=== PATIENT | male | born 1955 | race Caucasian/White ===

== ENCOUNTER 2017-01-07 15:40 | Emergency (ER) | payer MEDICARE, MEDICAID ==
[2017-01-07 16:44] VITALS: BP 122/73
--- NOTE | 2017-01-07 16:57 | UC ---
Skin Complaint HPI - HPI Summary HPI Summary: left knee abrasion x 1 day hit the left knee to the stairs , minor abrasion, no bleeding walking well , no knee pain - History of Current Complaint Chief Complaint: UCLowerExtremity Time Seen by Provider: 01/07/17 16:51 Stated Complaint: LEFT KNEE INJURY Hx Obtained From: Patient Onset/Duration: Sudden Onset, Lasting Days - 1, Still Present Timing: Constant Onset Severity: Mild Current Severity: Mild Location: Other - left knee Aggravating: Nothing Alleviating: Nothing Associated Signs & Symptoms: Positive: Negative - Allergy/Home Medications Allergies/Adverse Reactions: Allergies Allergy/AdvReac Type Severity Reaction Status Date / Time No Known Allergies Allergy Verified 01/07/17 16:44 Review of Systems Constitutional: Negative Skin: Negative Eyes: Negative ENT: Negative Respiratory: Negative Cardiovascular: Negative Gastrointestinal: Negative Genitourinary: Negative Motor: Negative Neurovascular: Negative Musculoskeletal: Negative Neurological: Negative Psychological: Negative All Other Systems Reviewed And Are Negative: Yes PMH/Surg Hx/FS Hx/Imm Hx - Additional Past Medical History Additional PMH: Hiatel hernia surgery partial bowel obstruction 2006 Epi Gastic Herniorrhaphy Fx left thumb galbladder - Surgical History Surgical History: None Surgery Procedure, Year, and Place: Hiatel hernia surgery. partial bowel obstruction 2005. Epi Gastic Herniorrhaphy. Fx left thumb. galbladder - Family History Known Family History: Positive: None, Unknown - hx of MR could not obtain fmily hx - Social History Alcohol Use: None Substance Use Type: None Smoking Status (MU): Never Smoked Tobacco Physical Exam Triage Information Reviewed: Yes Appearance: Well-Appearing, No Pain Distress, Well-Nourished Vital Signs: Initial Vital Signs Temp 98.3 F 01/07/17 16:36 Pulse 68 01/07/17 16:36 Resp 16 01/07/17 16:36 BP 122/73 01/07/17 16:36 Pulse Ox 97 01/07/17 16:36 Vital Signs Reviewed: Yes Eyes: Positive: Conjunctiva Clear ENT: Positive: Normal ENT inspection, Hearing grossly normal, Pharynx normal Neck: Positive: Supple Respiratory: Positive: Chest non-tender, Lungs clear, Normal breath sounds Cardiovascular: Positive: RRR, No Murmur, Pulses Normal Skin: Positive: Other - mild abrasion of the left knee, no bleeding Course/Dx - Diagnoses Provider Diagnoses: abrasion left knee Discharge - Discharge Plan Condition: Stable Disposition: HOME Patient Education Materials: Abrasion (ED) Referrals: Shawn Ruiz MD [Primary Care Provider] - If Needed
== END 2017-01-07 17:02 | disposition home or self-care (01) ==
LOC: UCCORT 15:40
DX: S80.212A Abrasion, left knee, initial encounter (principal); W22.8XXA Striking against or struck by other objects, initial encounter; Y93.9 Activity, unspecified; Y92.9 Unspecified place or not applicable
CPT/HCPCS: 99211; G0463

== ENCOUNTER 2017-02-14 16:10 | Emergency (ER) | payer MEDICARE, MEDICAID ==
[2017-02-14 16:26] VITALS: BP 130/83
--- NOTE | 2017-02-14 17:24 | UC ---
Skin Complaint HPI - HPI Summary HPI Summary: 61 yo male with neck rash that started today no pain or itch was out in sun - History of Current Complaint Chief Complaint: UCSkin Time Seen by Provider: 02/14/17 16:51 Stated Complaint: RASH NECK Hx Obtained From: Patient, Family/Diamond Cleaner Onset/Duration: Gradual Onset, Lasting Hours Timing: Constant Onset Severity: Mild Current Severity: Mild Pain Intensity: 0 Pain Scale Used: 0-10 Numeric Location: Other - from shirt collar up Character: Redness Aggravating: Nothing Alleviating: Nothing Associated Signs & Symptoms: Positive: Rash - Allergy/Home Medications Allergies/Adverse Reactions: Allergies Allergy/AdvReac Type Severity Reaction Status Date / Time No Known Allergies Allergy Verified 02/14/17 16:16 Home Medications: Home Medications [place] Carbonate TAB* 1 tab BID 02/14/17 [History Confirmed 02/14/17] Review of Systems Constitutional: Negative Skin: Rash Eyes: Negative ENT: Negative Respiratory: Negative Cardiovascular: Negative Gastrointestinal: Negative Genitourinary: Negative Motor: Negative Neurovascular: Negative Musculoskeletal: Negative Neurological: Negative Psychological: Negative All Other Systems Reviewed And Are Negative: Yes PMH/Surg Hx/FS Hx/Imm Hx Previously Healthy: Yes - mild MR Endocrine History: Hypothyroidism Psychological History: Other Other Psychological History: impulse controll disorder - Surgical History Surgical History: Yes Surgery Procedure, Year, and Place: Hiatel hernia surgery. partial bowel obstruction 2005. Epi Gastic Herniorrhaphy. Fx left thumb. galbladder - Family History Known Family History: Positive: None, Unknown - hx of MR could not obtain fmily hx - Social History Alcohol Use: None Substance Use Type: None Smoking Status (MU): Never Smoked Tobacco - Immunization History Most Recent Influenza Vaccination: 03/21/16 Most Recent Tetanus Shot: 04/14/09 Physical Exam Triage Information Reviewed: Yes Appearance: Well-Appearing, No Pain Distress, Well-Nourished Vital Signs: Initial Vital Signs Temp 99.2 F 02/14/17 16:16 Pulse 70 02/14/17 16:16 Resp 18 02/14/17 16:16 BP 130/83 02/14/17 16:16 Pulse Ox 99 02/14/17 16:16 Eye Exam: Normal Eyes: Positive: Conjunctiva Clear ENT: Positive: Hearing grossly normal. Negative: Nasal congestion, Nasal drainage, Trismus, Muffled/hoarse voice Neck: Positive: Supple, Nontender, No Lymphadenopathy Respiratory: Positive: Lungs clear, Normal breath sounds, No respiratory distress Cardiovascular: Positive: RRR, No Murmur Musculoskeletal: Positive: ROM Intact, No Edema Neurological: Positive: Alert Skin Exam: Other - see image Course/Dx - Diagnoses Provider Diagnoses: acute rash. suspect phototoxic drug reaction Discharge - Discharge Plan Condition: Stable Disposition: HOME Patient Education Materials: Acute Rash (ED), Photosensitivity (ED) Referrals: Shawn Ruiz MD [Primary Care Provider] - If Needed (recheck early next week if not better ) Additional Instructions: avoid sun exposure recheck for pain or itch Images Head: 1 - ertyema L>right neck 2 - erthema in area of thinning hair 3 - erthyema L>R face
== END 2017-02-14 17:33 | disposition home or self-care (01) ==
LOC: UCCORT 16:10
DX: R21 Rash and other nonspecific skin eruption (principal); E03.9 Hypothyroidism, unspecified; F63.9 Impulse disorder, unspecified; F79 Unspecified intellectual disabilities
CPT/HCPCS: 99211; G0463

== ENCOUNTER 2017-08-24 14:16 | Emergency (ER) | payer MEDICARE, MEDICAID ==
[2017-08-24 15:09] VITALS: BP 106/73
--- NOTE | 2017-08-24 15:52 | UC ---
Abdominal Pain Male HPI - HPI Summary HPI Summary: 62 yo male states he had abd pain today it lasted between 5 and 60 minutes he has been pain free since no fever no n/v/d no UTI symptoms good appetite - History of Current Complaint Chief Complaint: UCAbdominalPain Stated Complaint: ABDOMINAL PAIN Time Seen by Provider: 08/24/17 15:22 Hx Obtained From: Patient, Family/Chemist Onset/Duration: Gradual Onset, Lasting Minutes Timing: Constant Severity Initially: Moderate Severity Currently: None Pain Intensity: 0 Pain Scale Used: 0-10 Numeric Location: Diffuse Radiates: No Character: Unable to describe Aggravating Factor(s): Nothing Alleviating Factor(s): Spontaneous Resolution Associated Signs And Symptoms: Positive: Negative - Allergies/Home Medications Allergies/Adverse Reactions: Allergies Allergy/AdvReac Type Severity Reaction Status Date / Time No Known Allergies Allergy Verified 02/14/17 16:16 Home Medications: Home Medications Levothyroxine TAB* [Synthroid TAB*] 50 mcg PO DAILY 08/24/17 [History Confirmed 08/24/17] PMH/Surg Hx/FS Hx/Imm Hx Previously Healthy: Yes - MR/consipation - Surgical History Surgical History: Yes Surgery Procedure, Year, and Place: Hiatel hernia surgery. partial bowel obstruction 2005. Epi Gastic Herniorrhaphy. Fx left thumb. galbladder - Family History Known Family History: Positive: None, Unknown - hx of MR could not obtain fmily hx - Social History Alcohol Use: None Substance Use Type: None Smoking Status (MU): Never Smoked Tobacco - Immunization History Most Recent Influenza Vaccination: 03/21/16 Most Recent Tetanus Shot: 04/14/09 Review of Systems Constitutional: Negative Skin: Negative Eyes: Negative ENT: Negative Respiratory: Negative Cardiovascular: Negative Gastrointestinal: Abdominal Pain - resolved Genitourinary: Negative Motor: Negative Neurovascular: Negative Musculoskeletal: Negative Neurological: Negative Psychological: Negative Is Patient Immunocompromised?: No All Other Systems Reviewed And Are Negative: Yes Physical Exam Triage Information Reviewed: Yes Appearance: Well-Appearing, No Pain Distress, Well-Nourished Vital Signs: Initial Vital Signs Temp 98.5 F 08/24/17 15:02 Pulse 65 08/24/17 15:02 Resp 18 08/24/17 15:02 BP 106/73 08/24/17 15:02 Pulse Ox 99 03/01/18 15:02 Vital Signs Reviewed: Yes Eyes: Positive: Conjunctiva Clear ENT: Positive: Hearing grossly normal. Negative: Nasal congestion, Nasal drainage, Trismus, Muffled voice, Hoarse voice Dental: Positive: Other: - absent teeth Neck: Positive: Supple, Nontender Respiratory: Positive: Lungs clear, Normal breath sounds, No respiratory distress, No accessory muscle use Cardiovascular: Positive: RRR, No Murmur Abdomen Description: Positive: Nontender, No Organomegaly, Soft. Negative: CVA Tenderness (R), CVA Tenderness (L) Bowel Sounds: Positive: Present Musculoskeletal: Positive: ROM Intact, No Edema Neurological: Positive: Alert Psychological Exam: Normal Skin Exam: Normal Abd Pain Male Course/Dx - Differential Dx/Clinical Impression Provider Diagnoses: abdomonal pain of uncertain cause, spontaneous resolution Discharge - Discharge Plan Condition: Stable Disposition: HOME Patient Education Materials: Acute Abdominal Pain (ED) Referrals: Shawn Ruiz MD [Primary Care Provider] - If Needed Additional Instructions: recheck if symptoms recur (here or with primary)
== END 2017-08-24 15:53 | disposition home or self-care (01) ==
LOC: UCCORT 14:16
DX: R10.9 Unspecified abdominal pain (principal)
CPT/HCPCS: 99212; G0463

== ENCOUNTER 2019-06-24 21:02 | Emergency (ER) | payer MEDICARE, MEDICAID ==
[2019-06-24 21:19] VITALS: BP 123/87
--- NOTE | 2019-06-24 21:42 | UC ---
Abdominal Pain Male HPI - HPI Summary HPI Summary: 64-year-old male who has MR and [place] a detention with complaints of abdominal pain this evening. The caregiver states he vomited one time a small amount but that was not witnessed by anyone. He has a history of bowel obstruction and surgery for that. - History of Current Complaint Chief Complaint: UCGI Stated Complaint: BLOATED, VOMITING, STOMACH PAIN Time Seen by Provider: 06/24/19 21:27 Hx Obtained From: Family/[employer] Developer Onset/Duration: Gradual Onset Timing: Constant Severity Initially: Mild Severity Currently: Mild Pain Intensity: 3 Location: Diffuse Radiates: No Character: Unable to describe Aggravating Factor(s): Nothing Alleviating Factor(s): Nothing Associated Signs And Symptoms: Positive: Vomiting - Patient vomited a small amount one time. - Allergies/Home Medications Allergies/Adverse Reactions: Allergies Allergy/AdvReac Type Severity Reaction Status Date / Time No Known Allergies Allergy Verified 06/24/19 21:15 Home Medications: Home Medications Benztropine TAB* [Cogentin TAB*] 0.5 mg PO QAM 06/24/19 [History Confirmed 06/24] LORazepam TAB(*) [Ativan 1 MG TAB (*)] 1 mg PO TID 06/24/19 [History Confirmed 06/24/19] PMH/Surg Hx/FS Hx/Imm Hx Previously Healthy: Yes Endocrine History: Thyroid Disease - Surgical History Surgical History: Yes Surgery Procedure, Year, and Place: Hiatel hernia surgery. partial bowel obstruction 2005. Epi Gastic Herniorrhaphy. Fx left thumb. galbladder. urolift - Family History Known Family History: Positive: None, Unknown - hx of MR could not obtain [facility] hx - Social History Lives: [facility] Alcohol Use: None Substance Use Type: None Smoking Status (MU): Never Smoked Tobacco - Immunization History Most Recent Influenza Vaccination: 03/21/16 Most Recent Tetanus Shot: 04/14/09 Review of Systems All Other Systems Reviewed And Are Negative: Yes Gastrointestinal: Positive: Abdominal Pain - Complained of generalized abdominal pain this evening., Vomiting - Vomited a small amount one time tonight Is Patient Immunocompromised?: No Physical Exam Triage Information Reviewed: Yes Appearance: Well-Appearing, No Pain Distress, Well-Nourished Vital Signs: Initial Vital Signs Temp 99.2 F 06/24/19 21:15 Pulse 86 06/24/19 21:15 Resp 20 06/24/19 21:15 BP 123/87 06/24/19 21:15 Pulse Ox 96 06/24/19 21:15 Vital Signs Reviewed: Yes Respiratory: Positive: Lungs clear, Normal breath sounds, No respiratory distress, No accessory muscle use Cardiovascular: Positive: RRR, No Murmur, Pulses Normal, Brisk Capillary Refill Abdomen Description: Positive: No Organomegaly, Soft, Distended - Abdomen appears mildly distended., Hernia @ - Patient has a small epigastric hernia which is known, Other: - Patient's entire abdomen is tender on palpation.. Negative: CVA Tenderness (R), CVA Tenderness (L), Hepatomegaly, Splenomegaly Bowel Sounds: Positive: Present Musculoskeletal Exam: Normal Neurological: Positive: Other: - Patient interacting per his norm. Abd Pain Male Course/Dx - Course Course Of Treatment: The patient appears comfortable here. He needs to have further evaluation in the emergency room for his abdominal pain. The caregiver is agreeable to this plan of action. - Differential Dx/Clinical Impression Provider Diagnosis: Abdominal pain Discharge ED - Sign-Out/Discharge Documenting (check all that apply): Patient Departure All imaging exams completed and their final reports reviewed: No Studies - Discharge Plan Condition: Fair Disposition: HOME-RECOMMEND TO ED Referrals: Shawn Ruiz MD [Primary Care Provider] - Additional Instructions: After the evaluation by the nurse practitioner, it is recommended that you go to the emergency room for further evaluation of the abdominal pain where you should receive additional testing that can be completed in the emergency department. It is recommended that you go directly to the emergency department. This evaluation may include blood work or imaging. This testing will be directed and decided by the provider that evaluates you within the emergency department. If pain becomes worse, you feel lightheaded or you develop uncontrolled vomiting, or have any other concerns while you are driving to the emergency room, please dust puller and call 911. - Billing Disposition and Condition Condition: FAIR Disposition: Home-Recommend to ED
== END 2019-06-24 21:48 | disposition home health service (06) ==
LOC: UCCORT 21:02
DX: R10.84 Generalized abdominal pain (principal); R11.10 Vomiting, unspecified; R14.0 Abdominal distension (gaseous)
CPT/HCPCS: 99212; G0463